=== PATIENT | male | born 1990 | race Caucasian/White ===

== ENCOUNTER 2021-06-04 19:42 | Emergency (ER) | payer SELFPAY ==
[~2021-06-04] VITALS: Ht 177.8 cm; Wt 108.9 kg
[2021-06-04] MEDS ORDERED: NACL 0.9% 2,000 ML IV ONE (20:00)
[2021-06-04] MEDS ORDERED: levETIRAcetam 1,000 MG in NACL 0.9% 100 ML IV ONE (20:00)
[2021-06-04] MEDS ORDERED: levETIRAcetam 100 MG/ML VIAL IV ONE (20:06)
[2021-06-04] MEDS ORDERED: MIDAZOLAM 5 MG/1 ML VIAL ONE (20:13)
[2021-06-04 20:26] VITALS: BP 160/110
[2021-06-04 21:13] LABS: BASOPHILS % (AUTO) 2.1 % (0.0-2.0); EOSINOPHILS % (AUTO) 0.1 % (0.0-4.0); HEMATOCRIT 38.1 % (36-52); HEMOGLOBIN 12.7 g/dL (12.0-18.0); LYMPHOCYTES # (AUTO) 0.2 K/uL (2.0-11.5); LYMPHOCYTES % (AUTO) 17.1 % (20.5-51.1); MEAN CORPUSCULAR HEMOGLOBIN 35 pg (27-31); MEAN CORPUSCULAR HGB CONC 33 g/dL (33-37); MEAN CORPUSCULAR VOLUME 105.3 fL (80-94); MONOCYTES # (AUTO) 0.1 K/uL (0.8-1.0); MONOCYTES % (AUTO) 10.2 % (1.7-9.3); NEUTROPHILS # (AUTO) 0.9 K/uL (1.8-7.7); NEUTROPHILS % (AUTO) 70.5 % (42.2-75.2); PLATELET COUNT (AUTO) 123 K/uL (140-450); RED BLOOD CELL COUNT(AUTO) 3.62 MIL/uL (4.20-6.10)
[2021-06-04 21:16] LABS: WHITE BLOOD COUNT (AUTO) 1.2 K/uL (4.8-10.8)
[2021-06-04] MEDS ORDERED: CEFEPIME 2,000 MG in DEXTROSE 5% 100 ML IV ONE (21:20)
[2021-06-04] MEDS ORDERED: VANCOMYCIN 1,000 MG in DEXTROSE 5% 250 ML IV ONE (21:20)
[2021-06-04] MEDS ORDERED: MIDAZOLAM 5 MG/5 ML VIAL IV ONE (21:20)
[2021-06-04 21:29] LABS: ALBUMIN 3.9 g/dL (3.4-5.0); ANION GAP 14.3 (8-16); ASPARTATE AMINOTRANSFERASE 214 U/L (15-37); CARBON DIOXIDE 27.1 mmol/L (21-32); CHLORIDE 106 mmol/L (98-107); CREATININE 0.9 mg/dL (0.6-1.3); GFR ARICAN-AMERICAN 126 mL/min (>90); GLUCOSE 135 mg/dL (74-106); POTASSIUM 4.4 mmol/L (3.5-5.1); SODIUM SERUM 143 mmol/L (136-145); TOTAL BILIRUBIN 0.4 mg/dL (0.0-1.0); UREA NITROGEN, BLOOD 13 mg/dL (7-18)
[2021-06-04 21:32] LABS: ACETAMINOPHEN < 0.5 ug/ml (10-30); SALICYLATE < 2.8 mg/dL (2.8-20.0)
[2021-06-04] MEDS ORDERED: CEFEPIME 2,000 MG VIAL IV ONE (21:40)
[2021-06-04 21:45] LABS: APPEARANCE,URINE CLEAR (CLEAR); BILIRUBIN,URINE NEGATIVE (NEGATIVE); BLOOD, URINE TRACE-I (NEGATIVE); COLOR,URINE YELLOW (YELLOW); LEUKOCYTE ESTERASE ,URINE NEGATIVE (NEGATIVE); NITRITE, URINE NEGATIVE (NEGATIVE); UGLUCOSE NEGATIVE (NEGATIVE)
[2021-06-04] MEDS ORDERED: diphenhydrAMINE 50 MG/ML VIAL ONE (21:50)
[2021-06-04] MEDS ORDERED: LORazepam 2 MG/ML VIAL ONE ×2 (21:51→22:02)
[2021-06-04] MEDS ORDERED: OLANZapine 10 MG VIAL IM ONE (21:51)
[2021-06-04 22:00] LABS: RBC,URINE 0-5 /HPF (0-5); WBC,URINE 0-5 /HPF (0-5)
[2021-06-04 22:14] LABS: BARBITURATE, URINE NEGATIVE ng/ml (NEG <=200); BENZODIAZEPINE, URINE NEGATIVE ng/mL (NEG <=200); CANNABINOID, URINE NEGATIVE ng/mL (NEG <=50); COCAINE, URINE NEGATIVE ng/mL (NEG <=300); OPIATE, URINE NEGATIVE ng/mL (NEG <=2000); PHENCYCLIDINE SCREEN,URINE NEGATIVE ng/mL (NEG <=25)
[2021-06-04] MEDS ORDERED: PROPOFOL 1000 MG/100 ML PREMIX 100 ML IV ONE (22:22)
[2021-06-04] MEDS ORDERED: INTUBATION KIT MC ONE (22:22)
[2021-06-04] MEDS ORDERED: DOPPLER MC ONE (22:38)
[2021-06-04] MEDS ORDERED: PROPOFOL 1000 MG/100 ML PREMIX 100 ML IV SCH (22:45)
[2021-06-05 00:57] VITALS: BP 133/73
[2021-06-05] MEDS ORDERED: OSMITROL 25% 12.5 GM/50 ML VIAL IV ONE (01:50)
[2021-06-05 02:34] VITALS: BP 100/54
[2021-06-06 09:07] LABS: HEPATITIS A ANTIBODY IGM Negative (Negative); HEPATITIS B CORE AB TOTAL Negative (Negative); HEPATITIS B SURFACE ANTIBODY Non Reactive (.); HEPATITIS B SURFACE ANTIGEN Negative (Negative)
== END 2021-06-05 02:45 | disposition short-term general hospital (02) ==
LOC: MED 19:42
DX: J96.00 Acute respiratory failure, unspecified whether with hypoxia or hypercapnia (principal); F10.129 Alcohol abuse with intoxication, unspecified; R56.9 Unspecified convulsions; Y90.9 Presence of alcohol in blood, level not specified
CPT/HCPCS: 31500; 36415; 36600; 70450; 71045; 80053; 80305; 81001; 82550; 82803; 83605; 84484; 85025; 86703; 86704; 86706; 86708; 86709; 86803; 87040; 87186; 87340; 87426; 93005; 96365; 96367; 96375; 99291; G0480; G0482; J0692; J1200; J1953; J2060; J2250; J2704; J3490; J7030